=== PATIENT | male | born 1975 | race Caucasian/White ===

== ENCOUNTER 2020-07-10 11:59 | Day surgery (SDC) | payer OTHER ==
[~2020-07-10] VITALS: Ht 177.8 cm; Wt 108.9 kg
[~2020-07-10 11:59] MED LIST: NS 1,000 ML IV ONE; OMEP40CA97 PO
[2020-07-10] MEDS ORDERED: propofoL 500 MG/50 ML VIAL As Ordered ONE (12:01)
[2020-07-10] MEDS ORDERED: fentaNYL 100 MCG/2 ML INJECTION (J3010) As Ordered ONE (13:11)
--- NOTE | 2020-07-10 13:58 | ROOR ---
Patient Name: Rommel Mendoza Procedure Date: 07/10/2020 1:35 PM Date of : 1975 Age: 44 Room: [facility] Gender: Male Note Status: Finalized Procedure: Upper Endoscopy + Biopsies Indications: Heartburn, Failure to respond to medical treatment, Exclusion of Rivas's esophagus Providers: Tony Cooper MD Referring MD: MICHAEL RODRIGUEZ MD C/O Capt esquivel Requesting Provider: Medicines: Monitored Anesthesia Care Complications: No immediate complications. Procedure: Pre-Anesthesia Assessment: - The heart rate, respiratory rate, oxygen saturations, blood pressure, adequacy of pulmonary ventilation, and response to care were monitored throughout the procedure. The Endoscope was introduced through the mouth, and advanced to the second part of duodenum. The upper GI endoscopy was accomplished without difficulty. The patient tolerated the procedure well. Findings: The Z-line was irregular and was found 30 cm from the incisors. Multiple biopsies were obtained with cold forceps for evaluation to rule out Rivas's Esophagus randomly at 30 cm from the incisors. A medium-sized hiatal hernia was present. No other significant abnormalities were identified in a careful examination of the stomach. Biopsies were taken with a cold forceps in the gastric antrum for Helicobacter pylori testing. The exam of the duodenum was otherwise normal. Impression: - Z-line irregular, 30 cm from the incisors. - Medium-sized hiatal hernia. - Multiple biopsies were obtained at 30 cm from the incisors. - Biopsies were taken with a cold forceps for Helicobacter pylori testing. - The examination was otherwise normal. Recommendation: - Patient has a contact number available for emergencies. The signs and symptoms of potential delayed complications were discussed with the patient. Return to normal activities tomorrow. Written discharge instructions were provided to the patient. - Resume previous diet. - Discharge patient to home. - Follow an antireflux regimen. - Continue present medications. - Await pathology results. - Telephone GI clinic for pathology results in 1 week. - Return to referring physician. - The findings and recommendations were discussed with the patient. Procedure Code(s): --- Professional --- 67834, Esophagogastroduodenoscopy, flexible, transoral; with biopsy, single or multiple Diagnosis Code(s): --- Professional --- K22.8, Other specified diseases of esophagus K44.9, Diaphragmatic hernia without obstruction or gangrene R12, Heartburn CPT copyright 2019 [employer]. All rights reserved. The codes documented in this report are preliminary and upon grinding machine operator portable review may be revised to meet current compliance requirements. Tony Cooper MD Tony Cooper MD 07/10/2020 1:57:46 PM Electronically signed by Tony Cooper MD Number of Addenda: 0 Note Initiated On: 07/10/2020 1:35 PM Estimated Blood Loss: Estimated blood loss: none.
[2020-07-10] MEDS ORDERED: ONDANSETRON 4MG/2ML VIAL As Ordered ONE ×2 (14:00→14:06)
[2020-07-10] MEDS ORDERED: LIDOCAINE 2% 100MG/5ML SDV (FOR ANES.) As Ordered ONE (14:07)
[2020-07-10 14:30] VITALS: BP 109/56
== END 2020-07-10 14:43 | disposition home or self-care (01) ==
LOC: M OPP 11:59
PROVIDERS: ATTEND Internal Medicine Gastroenterology
DX: K22.8 Other specified diseases of esophagus (principal); K44.9 Diaphragmatic hernia without obstruction or gangrene; K21.9 Gastro-esophageal reflux disease without esophagitis; K31.89 Other diseases of stomach and duodenum; R12 Heartburn
CPT/HCPCS: 43239; 88305; J2405; J3010

== ENCOUNTER 2020-10-02 02:23 | Emergency (ER) | payer OTHER ==
[~2020-10-02] VITALS: Ht 177.8 cm; Wt 113.4 kg
[~2020-10-02 02:23] MED LIST changes: -NS 1,000 ML IV ONE
--- OUTSIDE RECORDS SUMMARY | 2020-10-02 03:55 | CCD ---
Author Author [facility] Organization [facility] Address Unknown Phone Unavailable Care Team Providers Care Defensive Secondary Coach Name Role Phone Zayra Cooper MD Unavailable Unavailable Zayra Cooper MD Unavailable Unavailable Zayra Cooper MD Unavailable Unavailable Zayra Cooper MD Unavailable Unavailable Zayra Cooper MD Unavailable Unavailable Zayra Cooper MD Unavailable Unavailable Zayra Cooper MD Unavailable Unavailable Zayra Cooper MD Unavailable Unavailable Zayra Cooper MD Unavailable Unavailable Zayra Cooper MD Unavailable Unavailable Zayra Cooper MD Unavailable Unavailable Zayra Cooper MD Unavailable Unavailable Zayra Cooper MD Unavailable Unavailable Zayra Cooper MD Unavailable Unavailable Zayra Cooper MD Unavailable Unavailable Zayra Cooper MD Unavailable Unavailable Zayra Cooper MD Unavailable Unavailable Zayra Cooper MD Unavailable Unavailable Zayra Cooper MD Unavailable Unavailable Zayra Cooper MD Unavailable Unavailable Zayra Cooper MD Unavailable Unavailable Zayra Cooper MD Unavailable Unavailable Zayra Cooper MD Unavailable Unavailable Zayra Cooper MD Unavailable Unavailable Zayra Cooper MD Unavailable Unavailable Zayra Cooper MD Unavailable Unavailable Zayra Cooper MD Unavailable Unavailable Zayra Cooper MD Unavailable Unavailable Zayra Cooper MD Unavailable Unavailable Zayra Cooper MD Unavailable Unavailable Zayra Cooper MD Unavailable Unavailable Zayra Cooper MD Unavailable Unavailable Zayra Cooper MD Unavailable Unavailable Zayra Cooper MD Unavailable Unavailable Zayra Cooper MD Unavailable Unavailable Zayra Cooper MD Unavailable Unavailable Zayra Cooper MD Unavailable Unavailable Zayra Cooper MD Unavailable Unavailable Kenneth, S Tony MD Unavailable Unavailable Kenneth, S Tony MD Unavailable Unavailable Kenneth, S Tony MD Unavailable Unavailable Kenneth, S Tony MD Unavailable Unavailable Kenneth, S Tony MD Unavailable Unavailable Kenneth, S Tony MD Unavailable Unavailable Kenneth, S Tony MD Unavailable Unavailable Kenneth, S Tony MD Unavailable Unavailable Kenneth, S Tony MD Unavailable Unavailable Kenneth, S Tony MD Unavailable Unavailable Kenneth, S Tony MD Unavailable Unavailable Kenneth, S Tony MD Unavailable Unavailable Re-disclosure Warning The records that you are about to access may contain information from federally-assisted alcohol or drug abuse programs. If such information is present, then the following federally mandated warning applies: This information has been disclosed to you from records protected by federal confidentiality rules (42 CFR part 2). The federal rules prohibit you from making any further disclosure of this information unless further disclosure is expressly permitted by the written consent of the person to whom it pertains or as otherwise permitted by 42 CFR part 2. A general authorization for the release of medical or other information is NOT sufficient for this purpose. The Federal rules restrict any use of the information to criminally investigate or prosecute any alcohol or drug abuse patient.The records that you are about to access may contain highly sensitive health information, the redisclosure of which is protected by Article 27-F of the [place] Public Health law. If you continue you may have access to information: Regarding HIV / AIDS; Provided by facilities licensed or operated by the [facility] Office of Mental Health; or Provided by the [facility] Office for People With Developmental Disabilities. If such information is present, then the following [facility] mandated warning applies: This information has been disclosed to you from confidential records which are protected by state law. State law prohibits you from making any further disclosure of this information without the specific written consent of the person to whom it pertains, or as otherwise permitted by law. Any unauthorized further disclosure in violation of state law may result in a fine or fpc sentence or both. A general authorization for the release of medical or other information is NOT sufficient authorization for further disc losure. Encounters Encounter Providers Location Date Indications Data Source(s ) Outpatient Attender: Tony Cooper MD Main Office 06/27/2020 08:30:00 AM [facility] Medications Medication Brand Name Start Date Product Form Dose Route Admi nistrative Instructions Pharmacy Instructions Status Indications Reaction Description Data Source(s) No Active Medications 06/27/2020 12:00:00 AM EST completed [facility] ([facility]) Omeprazole 40 MG Delayed Release Oral Capsule Omeprazole 06/27/2020 12:00:00 AM EST ORAL active [facility] ([facility]) Aluminum Hydroxide 160 MG / magnesium carbonate 105 MG Chewable Tablet Gaviscon Extra Strength 06/27/2020 12:00:00 AM EST ORAL active [facility] ([facility]) Insurance Providers Payer name Policy type / Coverage type Policy ID Covered democrat ID Covered democrat's relationship to christianson Policy [employer] Plan Information [facility] ACTIVE DUTY [id number] Problems, Conditions, and Diagnoses Code Display Name Description Problem Type Effective Dates Data Source(s) [id number] Gastroesophageal reflux disease Gastroesophageal reflux disease Problem 06/27/2020 12:00:00 AM EST [facility] Surgeries/Procedures Procedure Description Date Indications Data Source(s) UPPER NDSC BIOPSY SINGLE/MULTIPLE 07/10/2020 12:00:00 AM EST [facility] ([facility]) Results ID Date Data Source [id number] 07/10/2020 02:13:00 PM EST [facility]) Name Value Range Interpretation Code Description Data Jonna rce(s) Supporting Document(s) Surgical pathology study Laboratory test result [facility]) <content>FINAL DIAGNOSIS</content>
< content></content>
<content>A - Stomach, antrum, biopsy:</content>
<content>Gastric mucosa with mild reactive gastropathy.</content>
<content>No evidence for H. pylori-like organisms on H & E stain.</content>
<content></content>
<content>B - Esophagus, below Z line, biopsy:</content>
<content>Junctional mucosa with extensive intestinal metaplasia.</content>
<content>No evidence for dysplasia.</content>
<content>07/16/2020 - 1210</content>
<content></content>
<content>CLINICAL DIAGNOSIS</content>
<content></content>
<content>Chronic refractory heartburn</content>
<content>07/15/2020 - 1431</content>
<content></content>
<content>GROSS DIAGNOSIS</content>
<content></content>
<content>A - Received in formalin labeled "below antrum biopsy, R/O H. pylori"</content>
<content> consists of one fragment of hyatt tissue measuring 0.2 x 0.2 x 0.2 cm.</content>
<content>All in one.</content>
<content></content>
<content>B - Received in formalin labeled "biopsy below Z-line" consists of</content>
<content>multiple fragments of hyatt tissue, 0.7 x 0.6 x 0.2 cm in aggregate. All</content>
<content>in one.</content>
<content>- SV</content>
<content>07/15/2020 - 1431</content>
<content></content>
<content>Signed YUDITH FAYE MD 07/16/2020 1548</content>
<content></content> Procedure Vital Signs ID Date Data Source UNK Name Value Range Interpretation Code Description Data Source(s) Body height 70 [in_i] 70 [in_i] [facility] 5'10" Body weight 238.00 [lb_av] 238.00 [lb_av] [facility] T ([facility]) Systolic blood pressure 137 mm[Hg] 137 mm[Hg] M [facility] ([facility]) Diastolic blood pressure 85 mm[Hg] 85 mm[Hg] [facility] ([facility]) Heart rate 68 /min 68 /min [facility]) Body mass index (BMI) [Ratio] 34.1 kg/m2 34.1 k g/m2 [facility] ([facility]) Body weight 107.957 kg 107.957 kg [facility] Body temperature 97.9 [degF] 97.9 [degF] [facility] ([facility])
--- OUTSIDE RECORDS SUMMARY | 2020-10-02 03:55 | CCD | Continuity of Care Document ---
Author Author Rommel COOPER M.D. Organization Unknown Address [address] [place] [phone] Phone [phone] Care Team Providers Care Photoresist Contact Printer Name Role Phone Yo Wild AUTM Problems Active Problems Provider Date Gastroesophageal reflux disease Tony Cooper M.D. Ons et: 06/27/2020 Social History Type Date Description Comments Sex Unknown ETOH Use Occasionally Tobacco Use Start: Unknown Patient has never smoked Allergies, Adverse Reactions, Alerts Description No Known Drug Allergies Medications Active Medications SIG Qnty Indications Ordering Provide r Date Omeprazole 40mg Capsules DR 1 cap by mouth twice a day before meals 180caps González Espino 06/27/2020 Gaviscon Extra Strength 160-105mg Chewtabs 1 tab by mouth four times a day before meals,and at bedtime 360u nits Tony Cooper M.D. 06/27/2020 History Medications No Active Medications Tony ceron M.D. 06/27/2020 - 06/27/2020 Immunizations Description No Information Available Vital Signs Date Vital Result Comment 06/27/2020 9:43am Height 70 inches 5'10" Weight 238.00 lb BP Systolic 137 mmHg BP Diastolic 85 mmHg Heart Rate 68 /min BMI (Body Mass Index) 34.1 kg/m2 Weight 107.957 kg Body Temperature 97.9 F Results Test Acquired Date Facility Test Result H/L Range Note Laboratory test finding 07/10/2020 [facility] [address] [place] [address] Pathology Request For Service (SEE NOTE) 1 1 FINAL DIAGNOSIS A - Stomach, antrum, biopsy: Gastric mucosa with mild reactive gastropathy. No evidence for H. pylori-like organisms on H & E stain. B - Esophagus, below Z line, biopsy: Junctional mucosa with extensive intestinal metaplasia. No evidence for dysplasia. 07/16/2020 - 1210 CLINICAL DIAGNOSIS Chronic refractory heartburn 07/15/2020 - 1432 GROSS DIAGNOSIS A - Received in formalin labeled "below antrum biopsy, R/O H. pylori" consists of one fragment of hyatt tissue measuring 0.2 x 0.2 x 0.2 cm. All in one. B - Received in formalin labeled "biopsy below Z-line" consists of multiple fragments of hyatt tissue, 0.7 x 0.6 x 0.2 cm in aggregate. All in one. -SV 07/15/2020 - 1432 Signed YUDITH FAYE MD 07/16/2020 1548 Procedures Date Code Description Status 07/10/2020 67067 Endoscopy Upper GI Biopsy Comple [employer] Description No Information Available Encounters Type Date Location Provider Dx Diagnosis Office Visit 06/27/2020 9:30a Main Office Tony Cooper M.D. K 21.9 Gastro-esophageal reflux disease without esophagitis Assessments Date Code Description Provider 07/10/2020 R12 Heartburn Tony ghotra M.D. 07/10/2020 K31.89 Other diseases of stomach and du odenum Tony Cooper M.D. 07/10/2020 K44.9 Diaphragmatic hernia without obs truction or gangrene Tony Cooper M.D. 06/27/2020 K21.9 Gastroesophageal reflux disease Tony Cooper M.D. Plan of Treatment 06/27/2020 - Tony Cooper M.D.* K21.9 Gastroesophageal reflux disease* Comments:* 44 yo wm who presents for a chronic h/o heartburn for over 30 yrs. No c/o chest pain, or dysphagia. No weight loss, or nausea/vomiting. He is off all ppi meds. Never had an egd. Plan:1. Egd + biopsies2. Omeprazole 40 mgs po bid.3. Gaviscon prn for breakthrough symptoms. Functional Status Description No Information Available Mental Status Description No Information Available Referrals Refer to Reason for Referral Status Appt Date Tony Cooper M.D. Scheduled [address] [place] [phone]
--- OUTSIDE RECORDS SUMMARY | 2020-10-02 03:55 | CCD | Continuity of Care Document ---
Author Author Rommel COOPER M.D. Organization Unknown Address [address] [place] [phone] Phone [phone] Care Team Providers Care Loader Unloader Name Role Phone Yo Wild AUTM [phone] Problems Active Problems Provider Date Gastroesophageal reflux [...] H/L Range Note Laboratory test finding 07/10/2020 [facility] [address] [place] [address] Pathology Request For Service (SEE NOTE) 1, 2 1 FINAL DIAGNOSIS A - Stomach, antrum, [...] 1432 Signed YUDITH FAYE MD 07/16/2020 1548 2 07/17/20 (WedJul 17) 08:19 P Rosie COOPER scope in 1 yr Maintain meds Positive Rivas's. Procedures Date Code Description Status 07/10/2020 86921 Endoscopy Upper GI Biopsy Comple [employer] Description No Information Available Encounters Type Date [...] Appt Date Tony Cooper M.D. Scheduled [address] [place] [phone]
[2020-10-02] MEDS ORDERED: NS 1,000 ML IV ONE (04:00)
[2020-10-02] MEDS ORDERED: methylPREDNISolone 125MG 2ML VIAL IV ONE (04:00)
[2020-10-02] MEDS ORDERED: FAMOTIDINE IV BAG 20 MG in IV 1 EA IV ONE (04:00)
[2020-10-02] MEDS ORDERED: diphenhydrAMINE 50MG/ML VIAL (J1200) IV ONE (04:00)
[2020-10-02 05:34] VITALS: BP 134/82
[2020-10-02] MEDS ORDERED: PRED20TA PO (05:42)
[2020-10-02] MEDS ORDERED: BENA25CA4 PO (05:42)
[2020-10-02] MEDS ORDERED: PEPC1TAB5 PO (05:42)
== END 2020-10-02 05:51 | disposition home or self-care (01) ==
LOC: M ED 02:23
DX: T78.40XA Allergy, unspecified, initial encounter (principal); R21 Rash and other nonspecific skin eruption; R22.0 Localized swelling, mass and lump, head; K21.9 Gastro-esophageal reflux disease without esophagitis; Z79.899 Other long term (current) drug therapy
CPT/HCPCS: 96365; 96366; 96375; 99284; J1200; J2930